=== PATIENT | female | born 1965 | race Caucasian/White ===

== ENCOUNTER → 2021-06-04 | Outpatient (CLI) | payer OTHER, SELFPAY | END | disposition home or self-care (01) | LOC: LABSPEC 06-05 07:15 | PROVIDERS: Referring Provider Nurse Practitioner Adult Health; Visit Provider Nurse Practitioner Adult Health | DX: R31.0 Gross hematuria (principal) | CPT/HCPCS: 87086; 87088 ==

== ENCOUNTER → 2021-06-19 08:14 | Outpatient (CLI) | payer OTHER, SELFPAY ==
--- NOTE | 2021-06-19 08:21 | CT_ITS ---
STUDY: CT ABDOMEN AND PELVIS WITH AND WITHOUT CONTRAST REASON FOR EXAM: Female, 55 years old. GROSS HEMATURIA RADIATION DOSAGE (If Supplied By Facility): CTDIvol = ( 18.49 ) mGy, DLP = ( 2549.36 ) mGycm TECHNIQUE: Transaxial images were obtained from the dome of the diaphragm to the symphysis pubis without oral contrast. Isovue 370 100ml was administered. Sagittal and coronal images were reconstructed. Individualized dose optimization techniques were used for this CT. COMPARISON: None. FINDINGS: The visualized lung bases are unremarkable. The visualized portions of the heart are within normal limits. There is decreased attenuation of the liver consistent with steatosis. There is a 2.1 cm x 1.3 cm hypodense nodule in the peripheral posterior aspect of the right lobe of liver superiorly. This may represent a small hemangioma. A similar appearing nodular density along the posterior inferior aspect of the liver measuring 6.1 cm x 3.8 cm is present with some peripheral enhancement suggestive of an hemangioma. Normal gallbladder and extrahepatic biliary system. There is evidence of a 1.1 cm cyst in the peripheral aspect of the spleen superiorly. Normal pancreas. Normal bilateral adrenal glands. There is a 3.4 cm x 3.2 cm cyst in the anterior inferior pole of the right kidney. Normal left kidney. Normal visualized stomach. Normal small intestine. There is diverticulosis, with thickening of the colon wall, and pericolonic inflammation changes consistent with acute diverticulitis. Moderate degree of fecal material is seen in the colon. The appendix is visualized and appears normal. Normal abdominal aorta. Normal inferior vena cava. Normal retroperitoneum. Normal urinary bladder. There is absence of the uterus consistent with a prior hysterectomy. Normal abdominal wall. There are mild degenerative changes of the visualized lumbar spine. CT/CT Abd/Pelvis W/WO Contrast IMPRESSION: The findings suggest very mild degree of sigmoid diverticulitis with a moderate degree of fecal material seen in the colon. Findings suggestive of 2 hemangiomas in the right lobe of the liver as described. Right renal cyst. Electronically Signed: Moisés Ba MD at 10:51 EDT , Service support ,
[2021-06-19 08:36] LABS: CREATININE FINGERSTICK 0.7 mg/dL (0.55-1.02); EGFR FINGERSTICK > 60.0000 mL/min (>60)
== END ==
PROVIDERS: PCP Family Medicine; Visit Provider Nurse Practitioner Adult Health
DX: R31.0 Gross hematuria (principal)
CPT/HCPCS: 74178; Q9967

== ENCOUNTER 2022-05-27 08:22 | Day surgery (SDC) | payer OTHER, SELFPAY ==
--- NOTE | 2022-05-20 13:23 | EKG12_ITS ---
Test Reason : PREOP Blood Pressure : / mmHG Vent. Rate : 069 BPM Atrial Rate : 069 BPM P-R Int : 154 ms QRS Dur : 082 ms QT Int : 388 ms P-R-T Axes : 022 -14 042 degrees QTc Int : 415 ms Normal sinus rhythm Normal ECG Confirmed by RADHA GONZALEZ, JOHN ([id number]), online editor ANTONIO CHARLES ([id number]) on 05/21/2022 9:32:47 AM Referred By: Prasad Upton Confirmed By:JOHN GARCIA MD
[2022-05-27 08:48] VITALS: BP 137/83; PULSE 83; RESP 16; TEMP 37.1; O2SAT 98; BMI 29.7
[2022-05-27] MEDS: Lactated Ringers 1,000 ML 15 ML IV (08:51)
[2022-05-27] MEDS: Cefazolin 2 GM in 0.9% Normal Saline 100 ML IV (09:37)
[2022-05-27] MEDS: Ropivacaine 0.5% 30 ML Vial (10:08)
--- NOTE | 2022-05-27 10:32 | OP.PCM_ITS ---
Report of Operation Date of Procedure: 05/27/22 Description of Surgical Findings:: Preoperative diagnosis: Bilateral carpal Tunnel Syndrome Postoperative diagnosis: Bilateral carpal Tunnel Syndrome Procedure: Bilateral endoscopic Carpal Tunnel Release Surgeon: Prasad Upton DO Event Organizer: Serena Pink PA-C Anesthesia: General with LMA Credit Collections Rep: Sonido Marcelo CRNA Complications: None apparent Drains: None Estimated blood loss: 10 cc Urinary output: None measured IV fluids: 800 Cc crystalloid Specimens: None Surgical implants: None Surgical indications: This is a 56 female seen in the outpatient setting diagnosed with Bilateral carpal tunnel syndrome. The patient failed nonoperative management in the form of bracing, anti-inflammatory medications, activity modification. Operative intervention in form of endoscopic possible open carpal tunnel release was offered to bilateral hands. The risks, benefits, alternatives to procedure were reviewed with patient at length in the outpatient setting and he agreed to proceed. Risks included but were not limited to bleeding, infection, loss of life or limb, risk of anesthesia, incomplete release, neurovascular injury, persistent pain, need for additional surgery, stiffness, loss of hand function. Patient expressed understanding wish to proceed with surgery. Informed consent obtained in the office. Description of procedure: Patient was seen in preoperative holding area. Patient was identified by name, medical record number, date of . The operative extremities were marked with a surgical marker. We confirmed informed consent with the patient and all questions were answered to the patient's satisfaction. At time of her procedure, patient was brought to the operative suite and positioned supine a standard operating table. All bony prominences were well- padded. General anesthesia was induced and endotracheal tube placed. Bilateral upper extremities were then prepped for surgery by first applying a well-padded pneumatic tourniquet to the upper arms. We spun the bed approximately 45 degrees. 2 g Ancef was administered prior to incision by anesthesia staff. We performed a timeout at this point confirming side, site, and operation to be performed. No concerns voiced and elected to proceed. I began surgery on the left side, as this was the more symptomatic side. I first marked a transverse incision on the ulnar aspect of the palmaris longus tendon in the proximal wrist crease approximately 1 cm in length. Skin was sharply incised with 15 blade scalpel. Superficial veins were cauterized with bipolar cautery. The fatty layer was dissected through bluntly until the antebrachial fascia was encountered. The antebrachial fascia were split in line with the fibers as well as the incision with the Littler scissors. I then placed a skin hook around the antebrachial fascia distally. I open the proximal 1 cm longitudinally of the antebrachial fascia. I then sequentially dilated within the carpal tunnel utilizing Arthrex supplied dilators. I then utilized there synovial elevator to debride the undersurface of the transverse carpal ligament free from synovium. I then removed the elevator and inserted the centerline endoscopic carpal tunnel release system. The transverse carpal ligament was well visualized and free from underlying synovium. I identified its distal aspect by blotting the skin and perivascular fat was visualized. I then carefully deployed the scalpel from the sheath and, in retrograde fashion, sequentially released the transverse carpal ligament longitudinally. No aberrancies of the median nerve were apparent. Complete release was confirmed with Littler scissors acting as a probe. The tourniquet was then deflated. Hemostasis was excellent. A field block was administered with 10 cc 0.25% plain Marcaine. Skin was closed with A single horizontal mattress suture of 4-0 nylon suture. Sterile compression dressing was then applied. I then turned my attention to the Right side. marked a transverse incision on the ulnar aspect of the palmaris longus tendon in the proximal wrist crease approximately 1 cm in length. Skin was sharply incised with 15 blade scalpel. Superficial veins were cauterized with bipolar cautery. The fatty layer was dissected through bluntly until the antebrachial fascia was encountered. The antebrachial fascia were split in line with the fibers as well as the incision with the Littler scissors. I then placed a skin hook around the antebrachial fascia distally. I open the proximal 1 cm longitudinally of the antebrachial fascia. I then sequentially dilated within the carpal tunnel utilizing Arthrex supplied dilators. I then utilized there synovial elevator to debride the undersurface of the transverse carpal ligament free from synovium. I then removed the elevator and inserted the centerline endoscopic carpal tunnel release system. The transverse carpal ligament was well visualized and free from underlying synovium. I identified its distal aspect by blotting the skin and perivascular fat was visualized. I then carefully deployed the scalpel from the sheath and, in retrograde fashion, sequentially released the transverse carpal ligament longitudinally. No aberrancies of the median nerve were apparent. Complete release was confirmed with Littler scissors acting as a probe. The tourniquet was then deflated. Hemostasis was excellent. A field block was administered with 10 cc 0.25% plain Marcaine. Skin was closed with A single horizontal mattress suture of 4-0 nylon suture. Sterile compression dressing was then applied. Patient tolerated procedure well without apparent complication.she was safely extubated in the operative suite. She was transferred to PACU in stable condition. Intraoperative medications: Post Operative Plan: Weightbearing: Weightbearing as tolerated bilateral upper extremities Antibiotics: Ancef 2 g x 1 dose preoperatively DVT Prophylaxis: None indicated Marie: None Dressing: Okay to remove on postoperative day #2, shower. Apply Band-Aid X-Rays: None Pain Medication: Provided in the office Follow-up: 2 weeks post-operatively with me in the office
--- NOTE | 2022-05-27 10:36 | DCINST_ITS ---
Discharge Instructions Follow Up Care Test Results: Test results from this visit will be discussed in further detail at your follow- up appointment, if applicable. Discharge Plan Admission Primary Reason for Your Visit: Carpal tunnel surgery Attending Provider: Prasad Upton Primary Care Provider: Jaciel Perez Instructions Additional Instructions / Restrictions: Follow preprinted instructions from your surgeons office. Discharge Orders/Prescriptions Prescriptions: New hydrocodone-acetaminophen 5-325 mg tablet 1 tab PO Q6H PRN (Reason: pain) 3 Days Qty: 12 0RF Continued atorvastatin 10 mg tablet 10 mg PO DAILY Label Comments: TAKE 1 TABLET BY MOUTH EVERY DAY metoprolol tartrate 100 mg tablet 100 mg PO BID Label Comments: TAKE 1 TABLET BY MOUTH TWICE A DAY sertraline 50 mg tablet 50 mg PO DAILY Label Comments: TAKE 1 TABLET BY MOUTH ONCE A DAY AT BEDTIME progesterone micronized 100 mg Capsule 200 mg PO QHS Referrals / Follow Up: Jaciel Perez DO [Primary Care Provider] - Prasad Upton DO [Med Staff - Active Staff] - 06/11/22 Disposition Disposition (needs filled in before D/C Order can be placed): Home, Self Care
[2022-05-27 10:45] VITALS: BP 137/83; BP 144/78; PULSE 80; RESP 16; TEMP 36.6; O2SAT 95
[2022-05-27 11:00] VITALS: BP 128/72; BP 137/83; PULSE 71; RESP 16; O2SAT 96
[2022-05-27 11:15] VITALS: BP 126/80; BP 137/83; PULSE 67; RESP 16; O2SAT 96
[2022-05-27 11:30] VITALS: BP 124/73; BP 137/83; PULSE 75; RESP 16; TEMP 36.6; O2SAT 97
[2022-05-27 12:23] VITALS: BP 130/62; BP 137/83; PULSE 57; RESP 16; TEMP 36.7; O2SAT 96
== END 2022-05-27 12:26 | disposition home or self-care (01) ==
LOC: SDC 08:27 → AC 08:29
PROVIDERS: PCP Student in an Organized Health Care Education/Training Program; Referring Provider Student in an Organized Health Care Education/Training Program; Visit Provider Student in an Organized Health Care Education/Training Program
PROC: (CPT 29848; principal; 2022-05-27 09:45)
DX: G56.03 Carpal tunnel syndrome, bilateral upper limbs (principal); I10 Essential (primary) hypertension; E78.00 Pure hypercholesterolemia, unspecified; F41.9 Anxiety disorder, unspecified; E66.8 Other obesity; Z68.30 Body mass index [BMI] 30.0-30.9, adult; Z78.0 Asymptomatic menopausal state; Z79.890 Hormone replacement therapy; Z79.899 Other long term (current) drug therapy
CPT/HCPCS: 29848; 01810; 93005; J7120; J2405

== ENCOUNTER → 2022-05-31 | Outpatient (CLI) | payer OTHER, SELFPAY ==
--- NOTE | 2022-05-31 13:35 | VDUE_ITS ---
Reason For Study: Rt Upper Arm Mass Right Proximal Left Proximal Right jugular vein is spontaneous, widely Left subclavian vein is spontaneous, widely patent, phasic, with no intraluminal patent, phasic, with no intraluminal echogenicity noted. echogenicity noted. Right subclavian vein is spontaneous, widely patent, phasic, with no intraluminal echogenicity noted. Right Lower Arm Right radial vein is compressible. Right ulnar vein is compressible. Right Arm Rt AxillaryV is dilated and non compresisble consistent with acute DVT Rt BasilicV is dilated and non compressible consistent with acute SVT. Right brachial vein is compressible. Right cephalic vein is compressible. VL/Venous Duplex US, Unilateral Interpretation Summary Acute deep venous thrombosis right axillary vein Superficial thrombophlebitis right basilic vein Patent and compressible right cephalic vein Normal flow patterns left subclavian vein Ordering Physician: Prasad Upton Referring Physician: Jaciel Perez Performed By: Cristina Crockett RDCS, RVT ???
== END | disposition home or self-care (01) ==
PROVIDERS: PCP Student in an Organized Health Care Education/Training Program; Referring Provider Student in an Organized Health Care Education/Training Program; Visit Provider Student in an Organized Health Care Education/Training Program
DX: R22.31 Localized swelling, mass and lump, right upper limb (principal)
CPT/HCPCS: 93971

== ENCOUNTER → 2025-09-30 | Outpatient (CLI) | payer OTHER, SELFPAY ==
[2025-10-02 08:09] LABS: PROGESTERONE 1.5 ng/mL (.)
[2025-10-05 13:08] LABS: Testosterone, % Free 2.90 % (0.50-2.80); Testosterone, Free 1.42 ng/dL (0.10-0.85)
== END | disposition home or self-care (01) ==
PROVIDERS: PCP Family Medicine; Visit Provider Family Medicine
DX: Z51.81 Encounter for therapeutic drug level monitoring (principal); N95.1 Menopausal and female climacteric states
CPT/HCPCS: 36415; 82670; 84144; 84402; 84403